=== PATIENT | female | born 1955 | race Caucasian/White ===

== ENCOUNTER → 2017-07-04 | Outpatient (CLI) | payer BC ==
[2017-07-04 10:15] LABS: BASO % 0.4 %; BASO ABS # 0.03 K/uL (0-0.2); EOS % 2.4 %; EOS ABS # 0.17 K/uL (0-0.5); HEMATOCRIT 38.6 % (37-47); HEMOGLOBIN 12.6 g/dL (12.0-16.0); IG# 0.03 K/uL (0.00-0.02); LYMPH % 25.4 %; MEAN CELL VOLUME 83.9 fL (80-100); MEAN CORPUSCULAR HEMOGLOBIN 27.4 pg (25-34); MEAN CORPUSCULAR HGB CONC 32.6 g/dl (32-36); MEAN PLATELET VOLUME 10.1 fL (7.4-10.4); MONO ABS # 0.57 K/uL (0.11-0.59); NEUT % 63.4 %; PLATELET COUNT 261 K/uL (130-400); RED CELL DISTRIBUTION WIDTH SD 39.3 fL (36.4-46.3)
[2017-07-04 10:40] LABS: BLOOD UREA NITROGEN 31 mg/dl (7-18); CALCIUM 8.8 mg/dl (8.5-10.1); CARBON DIOXIDE 28 mmol/L (21-32); CREATININE 1.52 mg/dl (0.60-1.20); GLUCOSE 89 mg/dl (70-99); POTASSIUM 3.6 mmol/L (3.5-5.1); SODIUM 138 mmol/L (136-145)
== END | disposition home or self-care (01) ==
LOC: C.LAB 09:11
PROVIDERS: ATTEND Orthopaedic Surgery
DX: M25.511 Pain in right shoulder (principal)

== ENCOUNTER → 2017-07-23 | Day surgery (SDC) | payer BC ==
[2017-07-14 15:27] VITALS: Ht 165.1 cm; Wt 65.9 kg
[~2017-07-23] VITALS: Ht 165.1 cm; Wt 65.9 kg
[~2017-07-23] MED LIST: ATROPINE SULFATE 0.1 MG/ML 5ML SYR IV PRN; BUPIVACAINE 0.25% 30 ML VIAL ONE; CEFAZOLIN 2000MG IV PUSH 15 ML IV SCH; CHECK SCOPOLAMINE PATCH PLACEMENT SCH; DEXAMETHASONE SOD INJ 4 MG/ML VIAL ONE; ESTR0.3T PO; EpHEDrine SULFATE INJ 50 MG/ML AMP IV PRN; EpHEDrine SULFATE INJ 50 MG/ML AMP ONE; EpINEphrine INJ 1MG/ML AMP 1 MG/ML AMP ONE; FENTANYL CITRATE INJ 50 MCG/1 ML 2 ML VIAL ONE; FLUMAZENIL 0.1 MG/1 ML 10 ML VIAL IV PRN; HYDROmorphone INJ 2 MG/ML SYR/VIAL IV PRN; KETO10TA PO; LABETALOL HCL IV 5 MG/ML 20ML IV PRN; LACTATED RINGER'S 1000ML 1,000 ML IV SCH; MELO15TA10 PO; MEPERIDINE HCL 25 MG/ML CARP IV PRN; MIDAZOLAM HCL 1 MG/ML 2ML VIAL ONE; NALOXONE HCL 0.4 MG/1 ML VIAL/CARP IV PRN; NURSING VERBAL MED ORDER ONE; ONDANSETRON INJ 2 MG/ML 2 ML VIAL IV PRN; ONDANSETRON INJ 2 MG/ML 2 ML VIAL ONE; OXYC-57 PO; OXYCODONE/ACETAMINOPHEN 5-325 TAB PO PRN; PHENYLEPHRINE 100MCG/ML 5ML SYR IV PRN; PROPOFOL IV EMULSION 10 MG/ML 20 ML VIAL IV ONE; ROPIVACAINE 0.5% 5 MG/ML 30 ML VIAL ONE; SCOPOLAMINE 1.5 MG TDSY TD ONE; SODIUM CHLORIDE 0.9% 1000ML 1,000 ML IV SCH; SODIUM CHLORIDE 0.9% INJ 10 ML VIAL ONE; TRAM-453 PO; TRAMADOL HCL 50 MG TAB ONE; TRAMADOL HCL 50 MG TAB PO PRN; TRIATAB3 PO
--- NOTE | 2017-07-23 07:24 | History & Physical Bridge Note ---
H&P Re-Evaluation Bridge Note: I have examined the patient, reviewed the History & Physical and in the interval since the performance of the History & Physical I have noted the following changes of clinical significance: No changes noted
--- NOTE | 2017-07-23 09:37 | [facility] Post Operative Brief Note ---
Immediate Operative Summary Operative Date Jul 23, 2017. Pre-Operative Diagnosis Right shoulder tendinitis of rotator cuff, pain. Post-Operative Diagnosis same Procedure(s) Performed Right Shoulder Arthroscopy With Subacromial Decompression With Limited Debridement Surgeon Dr. Cunningham Jewel Hole Gauger Surgeon(s) Jw Jonas PA-C Estimated Blood Loss 5ml Findings Consistent with Post-Op Diagnosis Specimens none Anesthesia Type General Regional Complication(s) none Disposition Disposition: Recovery Room / PACU
--- NOTE | 2017-07-23 09:50 | Discharge Instructions-SurgCtr ---
Discharge Instructions Date of Service Jul 23, 2017. Visit Reason for Visit: Right Shoulder Tendinitis Of Rotator Cuff; Pain Discharge Discharge Diagnosis / Problem: right shoulder rotator cuff tendonitis, bursitis Discharge Goals Goal(s): Decrease discomfort, Therapeutic intervention Activity Recommendations Activity Limitations: per Instructions/Follow-up section Anesthesia . Post Anesthesia Instructions: If you have had General Anesthesia or IV Sedation: * Do not drive today. * Resume driving when surgeon permits. * Do not make important decisions or sign legal documents today. * Call surgeon for: 1. Temperature elevations greater than 101 degrees F. 2. Uncontrollable pain. 3. Excessive bleeding. 4. Persistent nausea and vomiting. 5. Medication intolerance (nausea, vomiting or rash). * For nausea and vomiting use only clear liquids such as: tea, soda, bouillon until nausea subsides, then gradually increase diet as tolerated. * If you have any concerns or questions, call your surgeon's office. If physician is unavailable and it is an emergency, call 911 or go to the nearest emergency room. . Instructions / Follow-Up Instructions / Follow-Up MEDICATIONS: * Resume previous medications unless instructed otherwise by your surgeon. * Always take pain medication on a full stomach or with food to avoid upset stomach. * Do not drink alcohol or drive while taking narcotics. * Ibuprofen or Tylenol may be taken if narcotic not needed. No ibuprofen while taking toradol SPECIAL CARE INSTRUCTIONS: __ None _x_ Keep extremity iced x 48 hours; apply ice 20-30 minutes 8-10 times/day. May remove at night. _x_ Sling for comfort __24 hrs/day __ Remove at night __ Shoulder Immobilizer __ 24 hrs/day __ Remove at night _x_ Dressing __ Maintain until seen in office, may shower with plastic over site _x_ Remove dressings in 48 hours and then may shower _x_ Cover incisions with band-aids after showering __ Do not remove steri-strips Call physician if chills or temperature rises above 102 degrees or pain unrelieved by prescribed pain medications at . follow up as scheduled . Diet Recommendations Home Diet: resume previous diet Procedures Procedures Performed: Right Shoulder Arthroscopy With Subacromial Decompression With Limited Debridement Pending Studies Studies pending at discharge: no Medical Emergencies . Who to Call and When: Medical Emergencies: If at any time you feel your situation is an emergency, please call 911 immediately. . Non-Emergent Contact Non-Emergency issues call your: Surgeon . . "Provider Documentation" section prepared by Rosendo Jonas. .
[2017-07-23] MEDS: FENTANYL CITRATE INJ 50 MCG/1 ML 2 ML VIAL IV PRN ×4 (10:06→10:23)
--- NOTE | 2017-07-23 10:23 | Anesthesia Progress Nt - [facility] ---
Anesthesia Post Op Note Date & Time Jul 23, 2017 at 10:22 Vital Signs Pain Intensity: 3 Vital Signs Past 12 Hours Date Time Temp Pulse Resp B/P (MAP) Pulse Ox O2 Delivery O2 Flow Rate FiO2 07/23/17 09:55 155/75 07/23/17 09:53 72 22 07/23/17 09:53 73 22 100 07/23/17 09:50 164/72 07/23/17 09:48 78 17 07/23/17 09:48 77 17 169/72 100 07/23/17 09:47 36.7 80 16 169/72 99 Mask 6 07/23/17 08:48 0 07/23/17 08:47 60 0 99 07/23/17 08:47 60 07/23/17 08:45 116/60 07/23/17 08:42 55 18 99 07/23/17 08:42 56 07/23/17 08:41 55 07/23/17 08:41 54 17 99 07/23/17 08:40 116/59 07/23/17 08:38 53 20 98 07/23/17 08:38 53 07/23/17 08:37 54 18 100 07/23/17 08:37 55 07/23/17 08:35 120/63 07/23/17 08:32 55 07/23/17 08:32 56 20 99 07/23/17 08:31 60 07/23/17 08:31 61 19 98 07/23/17 08:30 115/61 07/23/17 08:28 57 14 99 07/23/17 08:28 57 07/23/17 08:27 56 14 99 07/23/17 08:27 56 07/23/17 08:25 117/60 07/23/17 08:22 55 07/23/17 08:22 54 14 99 07/23/17 08:20 113/59 07/23/17 08:17 56 07/23/17 08:17 56 17 98 07/23/17 08:16 55 19 99 07/23/17 08:16 56 07/23/17 08:15 114/59 07/23/17 08:11 57 07/23/17 08:11 57 16 99 07/23/17 08:10 120/60 07/23/17 08:07 56 15 99 07/23/17 08:07 57 3/8/18 08:05 107/57 07/23/17 08:02 56 17 98 07/23/17 08:02 56 07/23/17 08:01 57 15 98 07/23/17 08:01 56 07/23/17 08:00 116/58 07/23/17 07:56 56 07/23/17 07:56 56 12 110/59 93 07/23/17 07:51 54 15 90 07/23/17 07:51 54 07/23/17 07:50 54 13 07/23/17 07:46 127/72 07/23/17 07:45 53 0 97 07/23/17 07:45 52 07/23/17 07:01 36.5 66 22 135/82 (99) 95 Room Air Notes Mental Status: alert / awake / arousable, participated in evaluation Pt Amnestic to Procedure: Yes Nausea / Vomiting: adequately controlled Pain: adequately controlled Airway Patency, RR, SpO2: stable & adequate BP & HR: stable & adequate Hydration State: stable & adequate Anesthetic Complications: no major complications apparent
[2017-07-23 11:00] VITALS: TEMP 36.4
[2017-07-23 11:53] VITALS: BP 113/68; PULSE 70; O2SAT 95
--- NOTE | 2017-07-23 16:26 | OPERATIVE REPORT ---
DATE OF OPERATION: 07/23/2017 PREOPERATIVE DIAGNOSIS: Severe external impingement of the right shoulder. POSTOPERATIVE DIAGNOSIS: Same. PROCEDURE: Right shoulder diagnostic arthroscopy with limited debridement and acromioplasty. SURGEON: Dr. Aristeo Cunningham. AUDIT SPECIALIST: Jw Jonas PA-C, whose assistance was necessary for help with arthroscopic instrumentation and closure. ANESTHESIA: General with a right interscalene nerve block. COMPLICATIONS: None. CONDITION: Stable to PACU. INDICATIONS: Queta is a pleasant 61-year-old female who has been having a 5 year history of right shoulder pain. It hurts her when she puts her arm out away from her body such as around the pews at [employer]. MRI and clinical examination were diagnostic for severe external impingement. After failing conservative treatment, she elected to undergo arthroscopy. DESCRIPTION OF PROCEDURE: On 07/23/2017 she arrived at [facility] for the above procedure. She was seen in the preoperative holding and the operative extremity was identified and signed. She was given a preoperative antibiotic and a right interscalene nerve block. She was taken back to the operating room, laid on the table in supine position and put under general anesthesia. She was then put into the beachchair position. The right shoulder was prepped and draped in sterile fashion. Time-out was done. The patient and operative extremity was properly identified. A scope was introduced in the posterior portal. Diagnostic arthroscopy showed no cartilage damage to the humeral head or glenoid. The biceps tendon was intact and went through a normal size biceps rocky mechanism. The supraspinatus, infraspinatus, teres minor and subscapularis were all checked and intact. There was a little fraying to the anterior labrum. An anterior portal was made. A shaver was used to do a limited debridement of the intra-articular structures. The biceps tendon was pulled into the joint and there was no evidence of pathology. The scope was then put into the subacromial space. A lateral portal was made. A shaver was used to do a complete subacromial and subdeltoid bursectomy. An ablator was used to tease the coracoacromial ligament off the undersurface of the acromion and a 5-0 marcellus was used to complete acromioplasty of a Bigliani type 2 acromion. Shaver was used to remove any excess debris and the bursal side of the rotator cuff was examined extensively without evidence of tear. Final diagnostic arthroscopy showed no additional pathology. Arthroscopic instruments were removed from the shoulder. Portal sites were closed with 3-0 nylon. She was then placed in a soft dressing and regular arm sling. She was then extubated, transferred to a litter and taken to the post-anesthesia care unit in stable condition. She tolerated the procedure well. I attest to the content of the Intraoperative Record and any orders documented therein. Any exception s are noted below.
== END | disposition home or self-care (01) ==
LOC: X.SURG 06:49
PROVIDERS: ATTEND Orthopaedic Surgery
DX: M75.41 Impingement syndrome of right shoulder (principal); Z90.49 Acquired absence of other specified parts of digestive tract; Z98.890 Other specified postprocedural states; M19.90 Unspecified osteoarthritis, unspecified site; Z86.718 Personal history of other venous thrombosis and embolism; Z88.1 Allergy status to other antibiotic agents; Z88.6 Allergy status to analgesic agent; Z82.49 Family history of ischemic heart disease and other diseases of the circulatory system; Z83.3 Family history of diabetes mellitus; Z80.0 Family history of malignant neoplasm of digestive organs

== ENCOUNTER 2020-03-08 06:13 | Observation (INO) ==
--- NOTE | 2020-02-22 09:39 | Anesthesiology Consultation ---
Date of Service February 22, 2020 Assessment & Plan (1) Encounter for pre-operative examination: Chart Review Chart Review: Acceptable Risk for Surgery (pending preop Covid testing ) and Patient NOT seen in Pre Admission Testing -Pt initially scheduled 02/09/20 for procedure but had to reschedule due to personal issues. Per nursing assessment 02/21/20, patient resides in [facility]. Travels to [facility] for medical appts. Wears PPE in public. Did attend on 02/11/20 but did not wear mask the entire time. Will be >2 weeks at time of Covid test and surgery. No known Covid positive contacts or Covid related symptoms. Scheduled for preop Covid testing 03/02/20. ACDF C4-6 with iliac crest bone graft 10/29/17= Done under [facility] with Grade 2 view with Glidescope #3 with ETT #7.5. History Surgery Operation Date: 03/08/20 09:55 Proposed Procedures p C3-C4 Anterior Cervical Discectomy Fusion, Possible C4-C6 Hardware Removal, Spinal Cord Monitoring - Zach Odom DO Height/Weight Height: 5 ft 5 in Weight: 71.668 kg Allergies Allergy/AdvReac Type Severity Reaction Status Date / Time [place] And Derivatives Allergy Severe Anaphylaxis Verified 01/27/20 11:02 sulfamethoxazole Allergy Intermediate Hives Verified 01/27/20 11:02 trimethoprim Allergy Intermediate Hives Verified 01/27/20 11:02 Bactrim Allergy Unknown HIVES Verified 10/29/17 10:43 codeine AdvReac Mild GI upset Verified 01/27/20 11:02 Medications Home Medications Medication Instructions Recorded Confirmed Last Taken coQ10 (ubiquinol) 200 mg PO QAM 01/19/20 02/21/20 Unknown conjugated estrogens [Premarin] 0.3 mg PO Q2D 01/19/20 02/21/20 Unknown evolocumab [Repatha Syringe] 140 mg SUBCUT UD 01/19/20 02/21/20 Unknown meclizine 25 mg PO BID 01/19/20 02/21/20 Unknown triamterene-hydrochlorothiazid 1 cap PO QAM 01/19/20 02/21/20 Unknown acetaminophen [Tylenol Extra 1,000 mg PO DAILY PRN 02/21/20 02/21/20 Unknown Strength] Past Medical History Medical History Chronic kidney disease Stage 3/4 --> Follows with [facility] History of hyperthyroidism s/p treatment with radioactive pill/euthyroid Hyperlipidemia Menieres disease reason for meclizine, triamterene/HCTZ Nausea and vomiting after administration of anesthetic agent severe Osteoarthritis Past Family History Family History Other No family history of adverse response to anesthesia No significant family history Past Surgical History Surgical History H/O bilateral oophorectomy History of arthroscopy RT SHOULDER History of cholecystectomy History of colonoscopy History of discectomy CERVICAL History of esophagogastroduodenoscopy (EGD) History of surgery on wrist LEFT CYST REMOVED History of tonsillectomy History of tooth extraction Social History Smoking Status: Never smoker Do You Dip or Chew Tobacco: No Hx Alcohol Use: Yes Alcohol type: wine alcohol intake frequency: a few times a month Hx Substance Use: No substance use type: does not use Testing Laboratory Results Laboratory Tests 01/27/20 01/27/20 01/27/20 11:57 11:57 11:57 WBC 6.74 Hgb 12.5 Hct 39.4 Plt Count 244 PT 10.6 INR 1.0 APTT 27.2 Sodium 140 Potassium 3.4 L Chloride 105 Carbon Dioxide 26 BUN 22 H Creatinine 1.45 H Glucose 80 01/27/20= URINE CULTURE: More than three types of organisms, all moderate counts mixed probably skin jori. Electrocardiogram Date: 01/27/20 Findings: + SB @ (58) Chest X-Ray Date: 01/27/20 Findings: + NAD Unchanged mild pleural thickening of the lung apices.
[~2020-03-08 06:13] MED LIST changes: +ACETAMINOPHEN 500 MG TAB PO SCH; -ATROPINE SULFATE 0.1 MG/ML 5ML SYR IV PRN; -BUPIVACAINE 0.25% 30 ML VIAL ONE; -CEFAZOLIN 2000MG IV PUSH 15 ML IV SCH; -CHECK SCOPOLAMINE PATCH PLACEMENT SCH; +CeleBREX 200 MG CAP PO SCH; -DEXAMETHASONE SOD INJ 4 MG/ML VIAL ONE; -ESTR0.3T PO; -EpHEDrine SULFATE INJ 50 MG/ML AMP IV PRN; -EpHEDrine SULFATE INJ 50 MG/ML AMP ONE; -EpINEphrine INJ 1MG/ML AMP 1 MG/ML AMP ONE; -FENTANYL CITRATE INJ 50 MCG/1 ML 2 ML VIAL ONE; -FLUMAZENIL 0.1 MG/1 ML 10 ML VIAL IV PRN; +GABAPENTIN 600 MG DOSE PO SCH; -HYDROmorphone INJ 2 MG/ML SYR/VIAL IV PRN; -KETO10TA PO; -LABETALOL HCL IV 5 MG/ML 20ML IV PRN; -LACTATED RINGER'S 1000ML 1,000 ML IV SCH; +LR 15ML/HR IV SCH; -MELO15TA10 PO; -MEPERIDINE HCL 25 MG/ML CARP IV PRN; -MIDAZOLAM HCL 1 MG/ML 2ML VIAL ONE; -NALOXONE HCL 0.4 MG/1 ML VIAL/CARP IV PRN; -NURSING VERBAL MED ORDER ONE; -ONDANSETRON INJ 2 MG/ML 2 ML VIAL IV PRN; -ONDANSETRON INJ 2 MG/ML 2 ML VIAL ONE; -OXYC-57 PO; -OXYCODONE/ACETAMINOPHEN 5-325 TAB PO PRN; -PHENYLEPHRINE 100MCG/ML 5ML SYR IV PRN; -PROPOFOL IV EMULSION 10 MG/ML 20 ML VIAL IV ONE; -ROPIVACAINE 0.5% 5 MG/ML 30 ML VIAL ONE; -SCOPOLAMINE 1.5 MG TDSY TD ONE; -SODIUM CHLORIDE 0.9% 1000ML 1,000 ML IV SCH; -SODIUM CHLORIDE 0.9% INJ 10 ML VIAL ONE; -TRAM-453 PO; -TRAMADOL HCL 50 MG TAB ONE; -TRAMADOL HCL 50 MG TAB PO PRN; -TRIATAB3 PO; +ceFAZolin 1000MG 1,000 MG/7.5 ML SYR IV SCH
[2020-03-08] MEDS ORDERED: BACITRACIN INJ 50,000 UNIT VIAL ONE (06:54)
[2020-03-08] MEDS ORDERED: SCOPOLAMINE 1.5 MG TDSY TD ONE ×2 (07:03→07:06)
[2020-03-08] MEDS ORDERED: ePHEDrine sulfate 50 MG/ML AMP IV PRN (07:06)
[2020-03-08] MEDS ORDERED: PROMETHAZINE HCL 12.5 MG in SODIUM CHLORIDE 0.9% 50 ML IV PRN ×2 (07:06→11:13)
[2020-03-08] MEDS ORDERED: fentaNYL citrate 100 MCG/2 ML VIAL IV PRN (07:06)
[2020-03-08] MEDS ORDERED: HYDROmorphone INJ 1 MG/ML SYRINGE IV PRN ×2 (07:06→11:13)
[2020-03-08] MEDS ORDERED: ONDANSETRON INJ 2 MG/ML 2 ML VIAL IV PRN ×2 (07:06→11:13)
[2020-03-08] MEDS ORDERED: ATROPINE SULFATE 0.1 MG/ML 10ML SYR IV PRN (07:06)
[2020-03-08] MEDS ORDERED: PROPOFOL IV EMULSION 10 MG/ML 100 ML VIAL IV ONE (07:15)
[2020-03-08] MEDS ORDERED: fentaNYL citrate 100 MCG/2 ML VIAL ONE (07:17)
[2020-03-08] MEDS ORDERED: MIDAZOLAM HCL 1 MG/ML 2ML VIAL ONE (07:18)
--- NOTE | 2020-03-08 07:30 | History & Physical Bridge Note ---
Date of Service March 08, 2020 History & Physical Bridge Note I have examined the patient, reviewed the History & Physical and in the interval since the performance of the History & Physical I have noted the following changes of clinical significance: no changes noted
--- NOTE | 2020-03-08 07:31 | History & Physical Report ---
Date of Service March 08, 2020 Assessment & Plan (1) Cervical stenosis of spinal canal: Admission and Anticipated Discharge Date Admission Date: C3-C4 anterior cervical discectomy and fusion, possible C4-C6 hardware removal History of Present Illness Chief Complaint: Neck and arm pain Primary Care Provider: Gordon Carpenter This is a 64-year-old female who presents with chronic persistent neck and arm symptoms after failing course of nonoperative care is here for surgical invention. Allergies Allergy/AdvReac Type Severity Reaction Status Date / Time [place] And Derivatives Allergy Severe Anaphylaxis Verified 03/08/20 06:40 sulfamethoxazole Allergy Intermediate Hives Verified 03/08/20 06:40 trimethoprim Allergy Intermediate Hives Verified 03/08/20 06:40 Bactrim Allergy Unknown HIVES Verified 10/29/17 10:43 codeine AdvReac Mild GI upset Verified 03/08/20 06:40 Home Medications Home Medications Medication Instructions Recorded Confirmed Type coQ10 (ubiquinol) 200 mg PO QAM 01/19/20 03/08/20 History conjugated estrogens [Premarin] 0.3 mg PO Q2D 01/19/20 03/08/20 History evolocumab [Repatha Syringe] 140 mg SUBCUT UD 01/19/20 03/08/20 History meclizine 25 mg PO BID 01/19/20 03/08/20 History triamterene-hydrochlorothiazid 1 cap PO QAM 01/19/20 03/08/20 History [Dyazide] acetaminophen [Tylenol Extra 1,000 mg PO DAILY PRN 02/21/20 03/08/20 History Strength] Past Med/Surg History Medical History Chronic kidney disease Stage 3/4 --> Follows with [facility] History of hyperthyroidism s/p treatment with radioactive pill/euthyroid Hyperlipidemia Menieres disease reason for meclizine, triamterene/HCTZ Nausea and vomiting after administration of anesthetic agent severe Osteoarthritis Surgical History H/O bilateral oophorectomy History of arthroscopy RT SHOULDER History of cholecystectomy History of colonoscopy History of discectomy CERVICAL History of esophagogastroduodenoscopy (EGD) History of surgery on wrist LEFT CYST REMOVED History of tonsillectomy History of tooth extraction Family History Other No family history of adverse response to anesthesia No significant family history Social History Smoking Status: Never smoker Second Hand Exposure: No; Do You Dip or Chew Tobacco: No; Tobacco Cessation Education Requested by Patient: No Hx Alcohol Use: Yes Alcohol type: wine Hx Substance Use: No Preferred Language: Bulgarian Communication Ability: Effective Plant Etiologist Required: No Beliefs That Will Affect Care: None Current Living Situation: Spouse Other Information That Helps Us Care for You: No Feels Safe at Home: Yes Safety Concerns: Feels Safe At This Time Assistive Devices: Denture - Upper and Glasses Physical Exam Physical Exam: Patient is alert and oriented neurologically intact Heart regular rate and rhythm Lungs clear to auscultation Results & Data ([facility]) Vital Signs (Past 12 Hours) Vital Signs Temp Pulse Resp BP Pulse Ox 03/08/20 06:43 36.6 C 59 L 18 138/82 97
[2020-03-08] MEDS ORDERED: ROCURONIUM BROMIDE 10 MG/ML 5 ML VIAL IV ONE (08:25)
[2020-03-08] MEDS ORDERED: GLYCOPYRROLATE 0.2 MG/ML VIAL ONE (08:25)
[2020-03-08] MEDS ORDERED: PROPOFOL IV EMULSION 10 MG/ML 20 ML VIAL IV ONE (08:25)
[2020-03-08] MEDS ORDERED: DEXAMETHASONE SOD INJ 4 MG/ML VIAL ONE (08:25)
[2020-03-08] MEDS ORDERED: SUCCINYLCHOLINE CHLORIDE 20 MG/ML 10 ML VIAL IV ONE (08:25)
[2020-03-08] MEDS ORDERED: ONDANSETRON INJ 2 MG/ML 2 ML VIAL ONE (08:25)
[2020-03-08] MEDS ORDERED: LIDOCAINE HCL 2% 2 ML VIAL/AMP(20MG/ML) INFIL ONE (08:25)
[2020-03-08] MEDS ORDERED: NEOSTIGMINE METHYLSULFATE 1 MG/ML 10ML VIAL ONE (08:25)
[2020-03-08] MEDS ORDERED: LARYING-O-JET KIT (LTA) ONE (08:25)
[2020-03-08] MEDS ORDERED: HYDROmorphone INJ 2 MG/ML SYR/VIAL ONE (08:26)
[2020-03-08] MEDS ORDERED: ePHEDrine sulfate 50 MG/ML SYR ONE (08:37)
[2020-03-08] MEDS ORDERED: PHENYLEPHRINE 100MCG/ML 5ML SYR ONE (08:37)
[2020-03-08] MEDS ORDERED: FLOSEAL HEMOSTATIC MATRIX 10ML TOP ONE (09:07)
--- NOTE | 2020-03-08 09:14 | Operative Report ---
Post Operative Report Pre & Post Diagnosis Operation Date: 03/08/20 07:30 Pre-Op Diagnosis: Spinal Stenosis, Cervical Region Post-Op Diagnosis: Spinal Stenosis, Cervical Region I identified the patient and participated in the time-out.: Yes Procedure Operation Date: 03/08/20 07:30 Actual Procedures #1 anterior cervical discectomy with bilateral foraminotomies C3-C4. #2 anterior cervical arthrodesis C3-C4. #3 placement of globus coalition interbody cage 7 mm in height filled with DBM at C3-C4. Surgeon Zach Odom, Reproducer Julia Prajapati Estimated Blood Loss 20 Findings Consistent with Post-Op Diagnosis Specimens None Indications This is a 64-year-old female who presents with above-mentioned diagnosis after failing course of nonoperative care she is here for surgical intervention. Description of Procedure Patient was met with identified informed consent obtained. Patient was then taken to the operative suite underwent an patient placed in supine position the Yobany table head Vargas head of conservation. All bony prominences well-padded eyes inspected to ensure no external pressure placed upon them. This point the anterior cervical spine was prepped and draped in normal sterile fashion. The assistance of fluoroscopy identified the C3-C4 displacement transverse incision was placed along the right anterior aspect of the cervical spine overlying this region. Sharp dissection with the assistance of bipolar electrocautery was performed down to and exposing the anterior cervical spine at C3 and C4. A self-retaining retractor was placed. Then performed a complete discectomy of C3-C4 out to the uncovertebral joints bilaterally. [place] distracting pins were utilized to assist in visualization. I removed all posterior annular fibers longitudinal ligament bilateral foraminotomies performed. Endplates were then burred to subcortical bleeding bone and a 7 mm coalition cage filled with DBM was tapped in position and screwed into place with 14 mm screws. Incision was then copiously irrigated explored to ensure no damage to surrounding structures remaining bleeding. 10 round YADY drain inserted. The incision was then closed with 2 Vicryl in a fashion of 4 Monocryl for final closure. Steri-Strip sterile dressings placed. Patient will continue to PACU stable condition. Please note spinal cord monitoring was utilized that the procedure no changes noted. Lastly Julia Prajapati was present at the entire surgery involved in patient positioning co mplex portions of the surgery and final skin closure. I attest to the content of the Intraoperative Record and any orders documented therein. Any exceptions are noted below.
--- NOTE | 2020-03-08 10:28 | Fluoroscopy Report ---
FL cervical 2-3V CLINICAL HISTORY: ACDF C3-C4 / HARDWARE REMOVAL C4-C6 COMPARISON STUDY: Cervical spine MRI 07/15/2019. FLUOROSCOPY TIME: 9 seconds. FINDINGS: 2 fluoroscopic spot image of the cervical spine demonstrate anterior cervical discectomy an d fusion at C3-C4. The C4-C6 fusion is again noted. The hardware appears intact. No fractures. IMPRESSION: Fluoroscopy provided for C3-C4 ACDF. ACT 112: Negative or not required by law. Electronically signed by: Nabil Villafuerte M.D. 03/08/2020 10:27 AM
--- NOTE | 2020-03-08 10:38 | Anesthesiology Progress Note ---
Date of Service March 08, 2020 Anesthesia Post Procedure Vital Signs Vital Signs: Temp Pulse Pulse Resp BP BP Pulse Ox 03/08/20 10:30 61 15 136/69 96 03/08/20 10:20 61 12 144/65 H 95 03/08/20 10:10 36.7 C 60 16 143/64 H 95 03/08/20 10:00 64 16 145/78 H 95 03/08/20 09:50 63 16 150/77 H 95 03/08/20 09:40 70 16 162/77 H 97 03/08/20 09:30 72 16 158/75 H 97 03/08/20 09:23 36.1 C L 85 16 178/79 H 93 03/08/20 06:43 36.6 C 59 L 18 138/82 97 Pain Intensity Neck: Pain Intensity: 6 Transfer of Care Handoff Completed per policy Notes Mental Status: alert / awake / arousable and participated in evaluation Patient Amnestic to Procedure: Yes Nausea / Vomiting: adequately controlled Pain: adequately controlled Airway Patency, RR, SpO2: stable & adequate BP & HR: stable & adequate Hydration State: stable & adequate Anesthetic Complications: no major complications apparent and Pt Satisfied with anesthetic care
[2020-03-08] MEDS ORDERED: DEXAMETHASONE SOD PHOSPHATE 8 MG in SYRINGE 0 ML IV PRN (11:13)
[2020-03-08] MEDS ORDERED: ALUMINUM/MAGNESIUM SUSP 30 ML UDC PO PRN (11:13)
[2020-03-08] MEDS ORDERED: ACETAMINOPHEN 1,000 MG/100 ML VIAL IV PRN (11:13)
[2020-03-08] MEDS ORDERED: FAMOTIDINE 20 MG TAB PO PRN (11:13)
[2020-03-08] MEDS ORDERED: MAGNESIUM HYDROXIDE SUSP 30 ML UDC PO PRN (11:13)
[2020-03-08] MEDS ORDERED: RACEPINEPHRINE 2.25% NEBU SOLN 0.5 ML VIAL INH PRN (11:13)
[2020-03-08] MEDS ORDERED: DO NOT ADMINISTER PNEUMOCOCCAL VACCINE PRN (11:13)
[2020-03-08] MEDS ORDERED: ACETAMINOPHEN 500 MG TAB PO PRN ×2 (11:13)
[2020-03-08] MEDS ORDERED: traMADol HCL 50 MG TABLET PO PRN (11:13)
[2020-03-08] MEDS ORDERED: DO NOT ADMINISTER FLU VACCINE PRN (11:13)
[2020-03-08] MEDS ORDERED: NALOXONE HCL 0.4 MG/1 ML VIAL/CARP IV PRN (11:13)
[2020-03-08] MEDS ORDERED: SOD PHOSPHATE/SOD BIPHOSPHATE ENEMA 132 ML BTL PR PRN (11:13)
[2020-03-08] MEDS ORDERED: hydrOXYzine HCl 25 MG TAB PO PRN (11:13)
[2020-03-08] MEDS ORDERED: LORazepam 0.5 MG/1 ML VIAL IV PRN (11:13)
[2020-03-08] MEDS ORDERED: HYDROmorphone INJ 0.5 MG/0.5 ML SYR IV PRN (11:13)
[2020-03-08] MEDS ORDERED: ONDANSETRON 4 MG OD TAB PO PRN (11:13)
[2020-03-08] MEDS ORDERED: METOCLOPRAMIDE HCL INJ 5 MG/ML 2 ML VIAL IV PRN (11:13)
[2020-03-08] MEDS ORDERED: LORazepam 0.5 MG TAB PO PRN (11:13)
[2020-03-08] MEDS: LACTATED RINGER'S 1,000 ML IV SCH ×2 (12:09→19:44)
[2020-03-08] MEDS: CHECK SCOPOLAMINE PATCH PLACEMENT SCH ×2 (12:09→16:17)
[2020-03-08] MEDS: DEXAMETHASONE SOD PHOSPHATE 8 MG in SYRINGE 0 ML IV SCH ×2 (14:42→22:03)
[2020-03-08] MEDS: ceFAZolin 2000MG 2,000 MG/15 ML SYR IV SCH (16:17)
[2020-03-08] MEDS ORDERED: COUGH DROP (SUGAR FREE) LOZ 24 LOZ/1 BOX BUCCAL ONE (16:20)
[2020-03-08] MEDS: diphenhydrAMINE Capsule 25 MG CAP PO PRN (18:18)
[2020-03-08] MEDS: MECLIZINE HCL 25 MG TAB PO SCH (20:47)
[2020-03-08] MEDS: DOCUSATE SODIUM/SENNA 50/8.6MG TAB PO SCH (20:47)
[2020-03-08] MEDS ORDERED: ESTROGENS, CONJUGATED 0.3 MG TAB PO SCH (21:00)
[2020-03-09] MEDS: CHECK SCOPOLAMINE PATCH PLACEMENT SCH ×4 (00:11→23:14)
[2020-03-09] MEDS: ceFAZolin 2000MG 2,000 MG/15 ML SYR IV SCH (00:11)
[2020-03-09] MEDS: DEXAMETHASONE SOD PHOSPHATE 8 MG in SYRINGE 0 ML IV SCH ×3 (06:08→21:43)
[2020-03-09] MEDS ORDERED: NON-FORMULARY MEDICATION (Coq10 (Ubiquinol) 200 MG) PO SCH (09:00)
--- NOTE | 2020-03-09 09:46 | Discharge Summary ---
Date of Service March 09, 2020 Admission HPI Per Admitting Provider This is a 64-year-old female who presents with chronic persistent neck and arm symptoms after failing course of nonoperative care is here for surgical invention. Principal Diagnosis Cervical spinal stenosis with radiculopathy Discharge Data Allergies Allergy/AdvReac Type Severity Reaction Status Date / Time [place] And Derivatives Allergy Severe Anaphylaxis Verified 03/08/20 06:40 sulfamethoxazole Allergy Intermediate Hives Verified 03/08/20 06:40 trimethoprim Allergy Intermediate Hives Verified 03/08/20 06:40 Bactrim Allergy Unknown HIVES Verified 10/29/17 10:43 codeine AdvReac Mild GI upset Verified 03/08/20 06:40 Procedures Performed Operation Date: 03/08/20 07:30 Actual Procedures p C3-C4 Anterior Cervical Discectomy Fusion, Spinal Cord Monitoring(Not Applicable) - Zach Odom DO Ordered Studies 03/08/20 07:30 FL cervical 2-3V Routine FL fluoroscopy <1hr Routine Hospital Course (1) Cervical stenosis of spinal canal: Patient underwent anterior cervical discectomy and fusion C3-C4 tolerates well second orthopedic for postop labor postop day 1 her arm symptoms are improved. No hoarseness. Strength intact. She is having some difficulty swallowing and was tolerating liquids well. She subsequently discharged home discharge orders instructions from the chart for further review. Total Time Total Time Spent Total Time Spent (In Minutes): 20 minutes Discharge Plan Discharge Items Patient Disposition: Home - Self-Care Reason For Visit: Spinal Stenosis, Cervical Region Discharge Diagnosis: Cervical spinal stenosis with radiculopathy Activity: As commented below Non-emergency contact: Primary Care Provider Call non-emergency contact if: you have any medication questions Follow-up/Referrals: Gordon Carpenter [Primary Care Provider] - Diet: Regular Addtl Attending Provider Instructions: ACTIVITY RECOMMENDATIONS: SELF CARE INSTRUCTIONS AFTER CERVICAL FUSIONS 1. No smoking. Smoking drastically decreases the chance of a solid fusion. 2. No bending, lifting more than 5 pounds, or twisting (roll like a log when turning in bed). 3. You may shower 3 days after surgery. Thoroughly dry wound. Do not soak in the tub. 4. Cervical collar: Must be worn at all times including sleeping. You may remove the brace only to bath, eat and if you are sitting in a recliner. 5. Please walk as much as you can for exercise. Gradually increase the distance that you walk as your endurance increases. SPECIAL CARE INSTRUCTIONS: VERY IMPORTANT TO READ AND REVIEW A. Do not take any anti-inflammatory medications (i.e. Indocin, Advil, Aspirin, Naprosyn, Aleve, Motrin, etc.) as these may inhibit the chance of a solid fusion. Tylenol is okay to take. B. Your surgical incision has been closed with a cosmetic suture under the skin that will dissolve in about 6 weeks. In 14 days, you can use a pair of clean scissors and cut the suture that is left outside of the skin at the ends of your incision. C. Complications are uncommon, but please contact us if you have any signs or symptoms of: 1. wound infection (fever higher than 102.5 degrees F, redness, separation of wound, drainage, or increasing pain from the incision) 2. blood clots in legs (pain, swelling, redness and warmth in legs) 3. urinary tract infection (fever higher than 102.5 degrees, burning upon urination or increased frequency of urination) 4. nerve problems (inability to walk on your toes or heels, numbness, loss of bowel or bladder control) 5. any other symptoms that concern you. D. Please call the office at if you have any concerns or questions about your operation or recovery. MANAGING PAIN AFTER SPINAL SURGERY 1. Narcotic medication is intended for short-term use and will be provided for surgical pain. Surgical pain usually lasts for a period of 4-6 weeks. Narcotic medication includes Percocet, Vicodin, Darvocet, Tylenol #3 or Lortab. 2. Longer-term pain is more appropriately treated with non-narcotic medication such as Tylenol ES. 3. Muscle spasm is not appropriately treated with narcotics. Muscle relaxers such as Soma, Flexeril or Skelaxin can be used along with Tylenol ES. 4. Remember that we all live with some "aches and pains". This is not unusual or uncommon after an injury or as we get older. 5. We will provide appropriate medication within the normal guidelines of their prescribed use. We will also be very cautious and aware of potential abuse and extended duration of patients' medication needs. 6. Please allow 2-3 days to process refills. Prescriptions will not be mailed but must be picked up at the office. FOLLOW UP VISIT: Keep your scheduled follow-up appointment. Any questions, please call the office at . Pending Studies at Discharge: No Stand-Alone Forms: [facility], Smoking Cessation Medications and DC Order Prescriptions: New tramadol 50 mg tablet 50 mg PO Q6H PRN (Reason: pain, moderate) Qty: 20 RF: 0 oxycodone 5 mg tablet 5 mg PO Q6H PRN (Reason: pain, severe) Qty: 20 RF: 0 Continued triamterene-hydrochlorothiazid [Dyazide] 37.5-25 mg Capsule 1 cap PO QAM RF: 0 meclizine 25 mg Tablet 25 mg PO BID RF: 0 Premarin 0.3 mg Tablet 0.3 mg PO Q2D RF: 0 coQ10 (ubiquinol) 200 mg Capsule 200 mg PO QAM RF: 0 Repatha Syringe 140 mg/mL Syringe 140 mg SUBCUT UD RF: 0 acetaminophen [Tylenol Extra Strength] 500 mg Tablet 1,000 mg PO DAILY PRN (Reason: Pain) RF: 0 Discharge Orders: Discharge Order (Routine); Ordered 03/09/20 Ordered By: Zach Odom Admission Data Admit Date/Time: 03/08/20 09:35 Attending Provider: Zach Odom Admit Provider: Zach Odom Primary Care Provider: Gordon Carpenter
[2020-03-09] MEDS: MECLIZINE HCL 25 MG TAB PO SCH ×2 (10:03→20:33)
[2020-03-09] MEDS: POLYETHYLENE (MIRALAX) 17 GM PACK PO SCH ×3 (10:04→23:28)
[2020-03-09] MEDS: TRIAMTERENE/HCTZ 37.5/25MG CAP PO SCH (10:04)
[2020-03-09] MEDS ORDERED: diphenhydrAMINE Capsule 25 MG CAP PO ONE (14:18)
[2020-03-09] MEDS ORDERED: diphenhydrAMINE Capsule 25 MG CAP PO PRN (14:18)
[2020-03-09] MEDS: LORATADINE 10 MG TAB PO SCH (16:26)
[2020-03-09] MEDS: DOCUSATE SODIUM/SENNA 50/8.6MG TAB PO SCH (20:33)
[2020-03-09] MEDS: diphenhydrAMINE Capsule 25 MG CAP PO PRN (20:37)
[2020-03-10] MEDS: diphenhydrAMINE Capsule 25 MG CAP PO PRN ×2 (04:02→10:53)
[2020-03-10] MEDS: DEXAMETHASONE SOD PHOSPHATE 8 MG in SYRINGE 0 ML IV SCH (05:30)
[2020-03-10] MEDS: POLYETHYLENE (MIRALAX) 17 GM PACK PO SCH (05:30)
[2020-03-10] MEDS: CHECK SCOPOLAMINE PATCH PLACEMENT SCH (08:48)
[2020-03-10] MEDS: MECLIZINE HCL 25 MG TAB PO SCH (08:49)
[2020-03-10] MEDS: LORATADINE 10 MG TAB PO SCH (08:49)
[2020-03-10] MEDS: TRIAMTERENE/HCTZ 37.5/25MG CAP PO SCH (08:49)
[2020-03-10] MEDS ORDERED: bisacodyL 10 MG SUPP PR PRN (09:14)
--- NOTE | 2020-03-10 10:25 | Orthopedic Progress Note ---
Date of Service March 10, 2020 Assessment & Plan (1) Cervical stenosis of spinal canal: Admission and Anticipated Discharge Date Admission Date: March 08, 2020 This time we will discontinue her drain DC home. Subjective Patient swallowing somewhat improved., Neck pain improved. Physical Exam Physical Exam: On exam is throat is supple no evidence of swelling. She is quite comfortable. Has good strength testing. Results & Data ([facility]) Vital Signs (Past 12 Hours) Vital Signs Temp Pulse Resp BP BP Pulse Ox 03/10/20 07:32 36.5 C 59 L 16 126/70 94 03/10/20 04:04 66 18 96 03/10/20 03:44 36.5 C 58 L 16 123/67 93 03/10/20 00:15 36.6 C 54 L 16 123/70 96 03/09/20 23:22 64 16 95
== END 2020-03-10 12:48 | disposition home or self-care (01) ==
LOC: ASU 06:13 → 3E 06:13